=== PATIENT | male | born 1975 | race Caucasian/White ===

== ENCOUNTER 2017-09-04 17:41 | Emergency (ER) | payer BC ==
[~2017-09-04] VITALS: Ht 188 cm; Wt 92.4 kg
[2017-09-04 17:57] VITALS: TEMP 36.9; Ht 188 cm; Wt 92.4 kg
[2017-09-04] MEDS ORDERED: SODIUM CHLORIDE 0.9% 1000ML 1,000 ML IV STA (18:07)
[2017-09-04 18:44] LABS: BASO % 0.2 %; BASO ABS # 0.01 K/uL (0-0.2); EOS % 1.6 %; HEMATOCRIT 44.2 % (42-52); HEMOGLOBIN 16.4 g/dL (14.0-18.0); IG# 0.01 K/uL (0.00-0.02); LYMPH % 27.3 %; LYMPH ABS # 1.72 K/uL (1.2-3.4); MEAN CELL VOLUME 86.2 fL (80-100); MEAN CORPUSCULAR HGB CONC 37.1 g/dl (32-36); MEAN PLATELET VOLUME 10.3 fL (7.4-10.4); MONO % 7.9 %; NEUT % 62.8 %; NEUT ABS # 3.97 K/uL (1.4-6.5); PLATELET COUNT 186 K/uL (130-400); RED CELL DISTRIBUTION WIDTH CV 12.4 % (11.5-14.5); RED CELL DISTRIBUTION WIDTH SD 39.3 fL (36.4-46.3); WHITE BLOOD COUNT 6.31 K/uL (4.8-10.8)
[2017-09-04 19:00] LABS: ALBUMIN 4.3 gm/dl (3.4-5.0); ALT/SGPT 50 U/L (12-78); BLOOD UREA NITROGEN 14 mg/dl (7-18); CALCIUM 9.1 mg/dl (8.5-10.1); CARBON DIOXIDE 25 mmol/L (21-32); CREATININE 1.07 mg/dl (0.60-1.40); GLUCOSE 113 mg/dl (70-99); LIPASE 248 U/L (73-393); POTASSIUM 3.9 mmol/L (3.5-5.1); SODIUM 138 mmol/L (136-145)
[2017-09-04 19:05] LABS: ALKALINE PHOSPHATASE 65 U/L (45-117); AST/SGOT 19 U/L (15-37); TOTAL PROTEIN 7.6 gm/dl (6.4-8.2)
[2017-09-04 19:07] LABS: PTT PATIENT 26.1 SECONDS (21.0-31.0)
[2017-09-04] MEDS ORDERED: MULT-513 PO (19:34)
--- NOTE | 2017-09-04 19:46 | DIAGNOSTIC IMAGING REPORT ---
PA CHEST WITH ABDOMINAL SERIES CLINICAL HISTORY: Generalized abdominal pain. Loose stools. FINDINGS: A PA chest radiograph is obtained. No prior studies are available for comparison at the time of dictation. The cardiomediastinal silhouette is unremarkable. The lungs and pleural spaces are clear. No pneumothorax is seen. The bony thorax is grossly intact. Supine and erect abdominal radiographs are obtained. No prior studies are available for comparison at the time of dictation. There is a nonobstructed abdominal bowel gas pattern. Mild to moderate fecal retention is noted throughout the colon. No evidence of intraperitoneal free air is seen. There are no abnormal abdominal calcifications. Phlebolith are observed in the pelvis. The lumbosacral spine and bony pelvis appear intact. IMPRESSION: 1. No active disease in the chest. 2. Nonobstructed abdominal bowel gas pattern. Electronically signed by: Flip Ding M.D. 09/04/2017 7:45 PM Dictated Date/Time: 09/04/2017 7:44 PM
[2017-09-04] MEDS ORDERED: ALUMINUM/MAGNESIUM SUSP 30 ML UDC PO STA (19:57)
[2017-09-04] MEDS ORDERED: PANTOprazole SOD 40 MG TAB PO STA (19:57)
[2017-09-04] MEDS ORDERED: PANT1TAB3 PO (19:59)
--- NOTE | 2017-09-04 20:13 | EMERGENCY ROOM VISIT NOTE ---
History Report prepared by Maribellibyumiko: Ramiro Ann Under the Supervision of: Dr. Reji Marroquin D.O. First contact with patient: 17:52 Chief Complaint: ABDOMINAL PAIN Stated Complaint: INTENSE STOMACH PAIN IN THROAT INTO BACK History of Present Illness The patient is a 42 year old male who presents to the Emergency Room with complaints of intermittent generalized abdominal pain beginning a few weeks ago. He notices his pain a few hours after eating (nearly every time). His pain is worse in his LLQ. The patient describes his pain as a feeling of "burning". He feels that his pain is moving downwards. He also complains of pain across his back. The patient states that his stool has been "loose" recently. He denies fevers, nausea, or vomiting. He has never had a colonoscopy. He has a history of occasional GERD but does not take medications. Source of History: patient Onset: A few days ago Position: abdomen (generalized) Quality: burning Timing: intermittent Modifying Factors (Worsening): eating Associated Symptoms: + back pain, No fevers, No nausea, No vomiting Note: The patient also complains of "loose" stool. Review of Systems See HPI for pertinent positives & negatives. A total of 10 systems reviewed and were otherwise negative. Past Medical & Surgical Medical Problems: (1) No Known Active Medical Problems Family History No pertinent family history stated. Social History Marital Status: Occupation Status: employed Current/Historical Medications Scheduled Multivitamins/Minerals (Mvi With Minerals), 1 TAB PO DAILY Pantoprazole (Protonix), 40 MG PO DAILY Allergies Coded Allergies: Bacitracin (Verified Allergy, Severe, FACE SWELLING, 09/04/17) Neomycin (Verified Allergy, Severe, FACE SWELLING, 09/04/17) Polymyxin B (Verified Allergy, Severe, FACE SWELLING, 09/04/17) Cephalexin (Verified Allergy, Intermediate, ITCHY, 09/04/17) Latex1 -Allergic Contact Dermititis (Verified Allergy, Intermediate, DERMITITIS, 09/04/17) Physical Exam Vital Signs Date Time Temp Pulse Resp B/P (MAP) Pulse Ox O2 Delivery O2 Flow Rate FiO2 09/04/17 20:24 74 20 147/98 98 09/04/17 17:57 36.9 76 20 150/96 99 Room Air Physical Exam GENERAL: Patient is awake, alert, and in no acute distress. Patient is resting comfortably and showing no signs of anxiety EYES: The conjunctivae are clear. The pupils are round and reactive. EARS, NOSE, MOUTH AND THROAT: The nose is without any evidence of any deformity. Mucous membranes are moist tongue is midline NECK: The neck is nontender and supple. RESPIRATORY: Normal respiratory effort is noted there is no evidence of wheezing rhonchi or rales CARDIOVASCULAR: Regular rate and rhythm noted there no murmurs rubs or gallops normal S1 normal S2 GASTROINTESTINAL: The abdomen is soft with diffuse tenderness to palpation but no guarding or rigidity. BACK: No midline tenderness or or step-off noted range of motion in flexion extension as well as rotation no signs of muscle spasm noted MUSCULOSKELETAL/EXTREMITIES: There is no evidence of gross deformity full range of motion is noted in the hips and shoulders SKIN: There is no obvious evidence of any rash. There are no petechiae, pallor or cyanosis noted. NEUROLOGIC: Patient is awake alert and oriented x3. Medical Decision & Procedures ER Provider Diagnostic Interpretation: Radiology results as stated below per my review and radiologist interpretation: PA CHEST WITH ABDOMINAL SERIES FINDINGS: A PA chest radiograph is obtained. No prior studies are available for comparison at the time of dictation. The cardiomediastinal silhouette is unremarkable. The lungs and pleural spaces are clear. No pneumothorax is seen. The bony thorax is grossly intact. Supine and erect abdominal radiographs are obtained. No prior studies are available for comparison at the time of dictation. There is a nonobstructed abdominal bowel gas pattern. Mild to moderate fecal retention is noted throughout the colon. No evidence of intraperitoneal free air is seen. There are no abnormal abdominal calcifications. Phlebolith are observed in the pelvis. The lumbosacral spine and bony pelvis appear intact. IMPRESSION: 1. No active disease in the chest. 2. Nonobstructed abdominal bowel gas pattern. Electronically signed by: Flip Ding M.D. 09/04/2017 7:45 PM Laboratory Results 09/04/17 18:27 Red Blood Count 5.13, Mean Corpuscular Volume 86.2, Mean Corpuscular Hemoglobin 32.0, Mean Corpuscular Hemoglobin Concent 37.1, Mean Platelet Volume 10.3, Neutrophils (%) (Auto) 62.8, Lymphocytes (%) (Auto) 27.3, Monocytes (%) (Auto) 7.9, Eosinophils (%) (Auto) 1.6, Basophils (%) (Auto) 0.2, Neutrophils # (Auto) 3.97, Lymphocytes # (Auto) 1.72, Monocytes # (Auto) 0.50, Eosinophils # (Auto) 0.10, Basophils # (Auto) 0.01 09/04/17 18:27 Test 09/04/17 18:27 09/04/17 19:10 White Blood Count 6.31 K/uL (4.8-10.8) Red Blood Count 5.13 M/uL (4.7-6.1) Hemoglobin 16.4 g/dL (14.0-18.0) Hematocrit 44.2 % (42-52) Mean Corpuscular Volume 86.2 fL (80-100) Mean Corpuscular Hemoglobin 32.0 pg (25-34) Mean Corpuscular Hemoglobin Concent 37.1 g/dl (32-36) Platelet Count 186 K/uL (130-400) Mean Platelet Volume 10.3 fL (7.4-10.4) Neutrophils (%) (Auto) 62.8 % Lymphocytes (%) (Auto) 27.3 % Monocytes (%) (Auto) 7.9 % Eosinophils (%) (Auto) 1.6 % Basophils (%) (Auto) 0.2 % Neutrophils # (Auto) 3.97 K/uL (1.4-6.5) Lymphocytes # (Auto) 1.72 K/uL (1.2-3.4) Monocytes # (Auto) 0.50 K/uL (0.11-0.59) Eosinophils # (Auto) 0.10 K/uL (0-0.5) Basophils # (Auto) 0.01 K/uL (0-0.2) RDW Standard Deviation 39.3 fL (36.4-46.3) RDW Coefficient of Variation 12.4 % (11.5-14.5) Immature Granulocyte % (Auto) 0.2 % Immature Granulocyte # (Auto) 0.01 K/uL (0.00-0.02) Prothrombin Time 10.7 SECONDS (9.0-12.0) Prothromb Time International Ratio 1.0 (0.9-1.1) Activated Partial Thromboplast Time 26.1 SECONDS (21.0-31.0) Partial Thromboplastin Ratio 1.0 Anion Gap 12.0 mmol/L (3-11) Est Creatinine Clear Calc Drug Dose 105.7 ml/min Estimated GFR () 99.4 Estimated GFR (Non- 85.8 BUN/Creatinine Ratio 12.6 (10-20) Calcium Level 9.1 mg/dl (8.5-10.1) Total Bilirubin 0.6 mg/dl (0.2-1) Direct Bilirubin 0.1 mg/dl (0-0.2) Aspartate Amino Transf (AST/SGOT) 19 U/L (15-37) Alanine Aminotransferase (ALT/SGPT) 50 U/L (12-78) Alkaline Phosphatase 65 U/L (45-117) Troponin I < 0.015 ng/ml (0-0.045) Total Protein 7.6 gm/dl (6.4-8.2) Albumin 4.3 gm/dl (3.4-5.0) Lipase 248 U/L (73-393) Urine Color YELLOW Urine Appearance CLEAR (CLEAR) Urine pH 6.5 (4.5-7.5) Urine Specific [place] 1.017 (1.000-1.030) Urine Protein NEG (NEG) Urine Glucose (UA) NEG (NEG) Urine Ketones NEG (NEG) Urine Occult Blood NEG (NEG) Urine Nitrite NEG (NEG) Urine Bilirubin NEG (NEG) Urine Urobilinogen NEG (NEG) Urine Leukocyte Esterase NEG (NEG) Laboratory results per my review. Medications Administered Medications (Trade) Dose Ordered Sig/Estiven Route Start Time Stop Time Status Last Admin Dose Admin Pantoprazole Sodium (Protonix Tab) 40 mg NOW STAT PO 09/04/17 19:57 09/04/17 19:58 DC 09/04/17 20:05 40 MG Al Hydroxide/Mg Hydroxide (Maalox Susp) 30 ml NOW STAT PO 09/04/17 19:57 09/04/17 19:58 DC 09/04/17 20:05 30 ML ECG Indication: abdominal pain Rate (beats per minute): 79 Rhythm: normal sinus Findings: no acute ischemic change, no ectopy Comparison ECG Date: no prior available ED Course 1800: The patient was evaluated in room B11B. A complete history and physical examination were performed. 1806: Ordered NSS 1,000 ml @ 999 mls/hr IV. 2004: Upon reevaluation, the patient is resting comfortably. I discussed the results and treatment plan with him. He verbalized agreement of the treatment plan. The patient was discharged home. Medical Decision Differential diagnosis: Etiologies such as appendicitis, diverticulitis, PUD, biliary pathology, UTI, pancreatitis, obstruction, mesenteric ischemia, aortic pathology, infections, inflammatory bowel disease, renal colic, as well as others were entertained. Nursing notes reviewed. The patient is a 42-year-old male who presented to the emergency department for an evaluation of abdominal pain. The patient describes abdominal pain which was worsened with food. He noticed pain initially started high in his abdomen but then would work its way down. He started noticing that it would worsen with food but improve after having a bowel movement. The patient's history and physical exam was not consistent with an acute surgical abdomen. The patient not wish to have any pain medication or IV fluids. I discussed the patient's laboratory radiographic studies with him. He did not have an elevation in his white blood cell count. X-rays did not reveal any acute abnormality. I discussed the possibility of doing a CAT scan of his abdomen but this time he does not wish to have the CAT scan secondary to the radiation exposure and I also agree that this is probably not the best test for him at this time. He was encouraged to try bland diet as well as a proton pump inhibitor. I also encouraged him to follow-up with his primary care physician for further evaluation or return to the emergency department immediately if symptoms change worsen or the need arises. Medication Reconcilliation Current Medication List: was personally reviewed by me Blood Pressure Screening Patient's blood pressure: Elevated blood pressure Blood pressure disposition: Elevated BP felt to be situational Impression Primary Impression: Generalized abdominal pain Scribe Attestation The scribe's documentation has been prepared under my direction and personally reviewed by me in its entirety. I confirm that the note above accurately reflects all work, treatment, procedures, and medical decision making performed by me. Departure Information Dispostion Home / Self-Care Prescriptions Pantoprazole (PROTONIX) 40 Mg Tab 40 MG PO DAILY, #30 TAB Prov: Reji Marroquin, DO 09/04/17 Referrals Rubén Emanuel M.D. (PCP) Forms Call Back Authorization, HOME CARE DOCUMENTATION FORM, IMPORTANT VISIT INFORMATION Patient Instructions ED Abdominal Pain Unkn Cause Male, My [facility] Additional Instructions Call your family Dr. to schedule a follow-up appointment. Drink plenty clear liquids. I would recommend a bland diet for the next few days. Continue all medications as prescribed. Consider using Tylenol as directed for pain. Return to the emergency department immediately if symptoms change worsen or the need arises.
[2017-09-04 20:24] VITALS: BP 147/98; PULSE 74; O2SAT 98
== END 2017-09-04 20:25 | disposition home or self-care (01) ==
LOC: C.EDB 17:43
DX: R10.84 Generalized abdominal pain (principal); R19.7 Diarrhea, unspecified; M54.9 Dorsalgia, unspecified

== ENCOUNTER 2017-09-05 21:04 | Emergency (ER) | payer BC ==
[~2017-09-05] VITALS: Ht 188 cm; Wt 92.2 kg
[~2017-09-05 21:04] MED LIST: MULT-513 PO; PANT1TAB3 PO
[2017-09-05 21:08] VITALS: TEMP 36.4; Ht 188 cm; Wt 92.2 kg
[2017-09-05] MEDS ORDERED: DICYCLOMINE HCL 10 MG/ML 2 ML AMP IM ONE (21:45)
[2017-09-05 22:13] LABS: BASO % 0.3 %; BASO ABS # 0.02 K/uL (0-0.2); EOS % 1.4 %; HEMATOCRIT 46.6 % (42-52); HEMOGLOBIN 16.9 g/dL (14.0-18.0); IG# 0.01 K/uL (0.00-0.02); LYMPH % 30.8 %; LYMPH ABS # 2.27 K/uL (1.2-3.4); MEAN CELL VOLUME 85.5 fL (80-100); MEAN CORPUSCULAR HGB CONC 36.3 g/dl (32-36); MEAN PLATELET VOLUME 10.2 fL (7.4-10.4); MONO % 8.5 %; MONO ABS # 0.63 K/uL (0.11-0.59); NEUT % 58.9 %; NEUT ABS # 4.35 K/uL (1.4-6.5); PLATELET COUNT 190 K/uL (130-400); RED CELL DISTRIBUTION WIDTH CV 12.5 % (11.5-14.5); RED CELL DISTRIBUTION WIDTH SD 38.8 fL (36.4-46.3); WHITE BLOOD COUNT 7.38 K/uL (4.8-10.8)
[2017-09-05 22:29] LABS: ALBUMIN 4.4 gm/dl (3.4-5.0); ALT/SGPT 46 U/L (12-78); BLOOD UREA NITROGEN 13 mg/dl (7-18); CALCIUM 9.6 mg/dl (8.5-10.1); CARBON DIOXIDE 26 mmol/L (21-32); CREATININE 1.07 mg/dl (0.60-1.40); GLUCOSE 105 mg/dl (70-99); LIPASE 125 U/L (73-393); POTASSIUM 3.6 mmol/L (3.5-5.1); SODIUM 136 mmol/L (136-145)
[2017-09-05 22:50] LABS: ALKALINE PHOSPHATASE 68 U/L (45-117); AST/SGOT 20 U/L (15-37); TOTAL PROTEIN 7.7 gm/dl (6.4-8.2)
--- NOTE | 2017-09-05 23:09 | DIAGNOSTIC IMAGING REPORT ---
GALLBLADDER-ABD LIMITED HISTORY: 42 years-old Male flank, upper abd pain acute bilateral flank pain COMPARISON: Acute abdominal series radiographs 09/04/2017 TECHNIQUE: Multiple real-time sonographic images of the abdominal right upper quadrant were obtained assessing grayscale appearance and color flow FINDINGS: Pancreas is obscured by bowel gas. The liver appears unremarkable without intrahepatic biliary ductal dilation or focal mass measuring 14.9 cm in length. Gallbladder is within normal limits without wall thickening, shadowing cholelithiasis or pericholecystic fluid collections. Common bile duct is normal, 2 mm. Right kidney is unremarkable without hydronephrosis. Study is limited secondary to obscuring bowel gas. IMPRESSION: 1. Unremarkable sonographic appearance of the gallbladder without cholelithiasis or sonographic evidence of acute cholecystitis. 2. No biliary ductal dilation. The above report was generated using voice recognition software. It may contain grammatical, syntax or spelling errors. Electronically signed by: Gerson Arrieta M.D. 09/05/2017 11:07 PM Dictated Date/Time: 09/05/2017 11:05 PM
--- NOTE | 2017-09-05 23:11 | DIAGNOSTIC IMAGING REPORT ---
(RENAL)RETROPERITON COMP HISTORY: 42 years-old Male flank, upper abd pain acute bilateral flank and upper abdominal pain COMPARISON: Right upper quadrant ultrasound of same day TECHNIQUE: Multiple real-time sonographic images of the kidneys and urinary bladder were obtained assessing grayscale appearance and color flow FINDINGS: Right kidney measures 9.0 x 4.8 x 5.4 cm and is within normal limits without renal calculi, hydronephrosis or focal renal mass identified. Cortical medullary differentiation preserved. Left kidney measures 10.3 x 6.1 x 5.3 cm and is within normal limits without renal calculi, hydronephrosis or focal renal mass identified. Cortical medullary differentiation preserved. Urinary bladder is not well distended. Ureteral jets not identified. Overall study is limited secondary to obscuring bowel gas. IMPRESSION: 1. Unremarkable sonographic appearance of the kidneys without renal calculi or hydronephrosis. 2. Partially distended urinary bladder. The above report was generated using voice recognition software. It may contain grammatical, syntax or spelling errors. Electronically signed by: Gerson Arrieta M.D. 09/05/2017 11:09 PM Dictated Date/Time: 09/05/2017 11:08 PM
--- NOTE | 2017-09-05 23:46 | EMERGENCY ROOM VISIT NOTE ---
History First contact with patient: 21:25 Chief Complaint: ABDOMINAL PAIN Stated Complaint: SEVERE BACK AND STOMACH PAINS Nursing Triage Summary: Pt reports he was here for abdominal pain last night and was told to come back today if it worsened for CT scan. Denies N/V. Denies urinary symptoms. Pain radiates from back into left flank and abdomen. History of Present Illness The patient is a 42 year old male who presents to the Emergency Room with complaints of intermittent abdominal and back pain for the past day. Patient states the pain will come and go in severity. He is currently not having any pain. It will move throughout his abdomen and back. No prior abdominal surgeries. Patient was taking probiotics and occasional oregano and other supplements a few days ago and then stopped this. Patient states since then the symptoms have started. Patient states he follows a Paleo diet and tries to avoid dairy and gluten foods. Patient denies chest pain, dyspnea, fever, chills , vomiting, diarrhea, urinary symptoms, testicular pain. Review of Systems See HPI for pertinent positives & negatives. A total of 10 systems reviewed and were otherwise negative. Past Medical/Surgical History Medical Problems: (1) No Known Active Medical Problems Social History Smoking Status: Never Smoker Drug Use: none Marital Status: Housing Status: lives with family Occupation Status: employed Current/Historical Medications Scheduled Multivitamins/Minerals (Mvi With Minerals), 1 TAB PO DAILY Pantoprazole (Protonix), 40 MG PO DAILY Physical Exam Vital Signs Date Time Temp Pulse Resp B/P (MAP) Pulse Ox O2 Delivery O2 Flow Rate FiO2 09/05/17 23:16 83 09/05/17 22:59 88 16 140/96 98 Room Air 09/05/17 21:08 36.4 81 16 143/98 99 Room Air Physical Exam VITALS: Vitals are noted on the nurse's note and reviewed by myself. Vital signs stable. GENERAL: Pleasant male, in no acute distress, nondiaphoretic, well-developed well-nourished. SKIN: Capillary reflex less than 2 seconds. HEENT: Normocephalic. PERRLA. EOMI. Nares patent. Mucous membranes moist. Neck is supple without nuchal rigidity. HEART: Regular rate and rhythm without murmurs gallops or rubs. LUNGS: Clear to auscultation bilaterally without wheezes, rales or rhonchi. No retractions or accessory muscle use. ABDOMEN: Positive bowel sounds x 4. Normal tympanic percussion. Soft, nontender, without masses or organomegaly. Rosen sign negative. No guarding or rebound tenderness. No CVA tenderness MUSCULOSKELETAL: No gross musculoskeletal defects. No pedal edema. NEURO: Patient was alert and oriented to person place and time. Normal sensation to light and sharp touch. No focal neurological deficits. Medical Decision & Procedures Laboratory Results 09/05/17 22:01 Red Blood Count 5.45, Mean Corpuscular Volume 85.5, Mean Corpuscular Hemoglobin 31.0, Mean Corpuscular Hemoglobin Concent 36.3, Mean Platelet Volume 10.2, Neutrophils (%) (Auto) 58.9, Lymphocytes (%) (Auto) 30.8, Monocytes (%) (Auto) 8.5, Eosinophils (%) (Auto) 1.4, Basophils (%) (Auto) 0.3, Neutrophils # (Auto) 4.35, Lymphocytes # (Auto) 2.27, Monocytes # (Auto) 0.63, Eosinophils # (Auto) 0.10, Basophils # (Auto) 0.02 09/05/17 22:01 Test 09/05/17 22:01 White Blood Count 7.38 K/uL (4.8-10.8) Red Blood Count 5.45 M/uL (4.7-6.1) Hemoglobin 16.9 g/dL (14.0-18.0) Hematocrit 46.6 % (42-52) Mean Corpuscular Volume 85.5 fL (80-100) Mean Corpuscular Hemoglobin 31.0 pg (25-34) Mean Corpuscular Hemoglobin Concent 36.3 g/dl (32-36) Platelet Count 190 K/uL (130-400) Mean Platelet Volume 10.2 fL (7.4-10.4) Neutrophils (%) (Auto) 58.9 % Lymphocytes (%) (Auto) 30.8 % Monocytes (%) (Auto) 8.5 % Eosinophils (%) (Auto) 1.4 % Basophils (%) (Auto) 0.3 % Neutrophils # (Auto) 4.35 K/uL (1.4-6.5) Lymphocytes # (Auto) 2.27 K/uL (1.2-3.4) Monocytes # (Auto) 0.63 K/uL (0.11-0.59) Eosinophils # (Auto) 0.10 K/uL (0-0.5) Basophils # (Auto) 0.02 K/uL (0-0.2) RDW Standard Deviation 38.8 fL (36.4-46.3) RDW Coefficient of Variation 12.5 % (11.5-14.5) Immature Granulocyte % (Auto) 0.1 % Immature Granulocyte # (Auto) 0.01 K/uL (0.00-0.02) Erythrocyte Sedimentation Rate 2 mm/hr (0-14) Urine Color YELLOW Urine Appearance CLEAR (CLEAR) Urine pH 7.0 (4.5-7.5) Urine Specific [place] 1.016 (1.000-1.030) Urine Protein NEG (NEG) Urine Glucose (UA) NEG (NEG) Urine Ketones TRACE (NEG) Urine Occult Blood NEG (NEG) Urine Nitrite NEG (NEG) Urine Bilirubin NEG (NEG) Urine Urobilinogen NEG (NEG) Urine Leukocyte Esterase NEG (NEG) Anion Gap 8.0 mmol/L (3-11) Est Creatinine Clear Calc Drug Dose 105.7 ml/min Estimated GFR () 99.4 Estimated GFR (Non- 85.8 BUN/Creatinine Ratio 11.7 (10-20) Calcium Level 9.6 mg/dl (8.5-10.1) Magnesium Level 2.5 mg/dl (1.8-2.4) Total Bilirubin 1.0 mg/dl (0.2-1) Direct Bilirubin 0.2 mg/dl (0-0.2) Aspartate Amino Transf (AST/SGOT) 20 U/L (15-37) Alanine Aminotransferase (ALT/SGPT) 46 U/L (12-78) Alkaline Phosphatase 68 U/L (45-117) C-Reactive Protein < 0.29 mg/dl (0-0.29) Total Protein 7.7 gm/dl (6.4-8.2) Albumin 4.4 gm/dl (3.4-5.0) Lipase 125 U/L (73-393) Thyroid Stimulating Hormone (TSH) 1.710 uIu/ml (0.300-4.500) ED Course Prior records/ancillary studies reviewed. Triage Nursing notes reviewed. Additional history obtained from family. The patient's history was concerning for abdominal pain. Differential diagnosis: Etiologies such as appendicitis, irritable bowel, diverticulitis, PUD, biliary pathology, UTI, pancreatitis, obstruction, mesenteric ischemia, aortic pathology , infections, inflammatory bowel disease, renal colic, as well as others were entertained. Physical examination findings: As above. ER treatment provided: Bentyl On reassessment the patient felt better. Diagnostics interpreted by me: The labs revealed no worrisome leukocytosis or electrolyte abnormality. Imaging studies: GALLBLADDER-ABD LIMITED HISTORY: 42 years-old Male flank, upper abd pain acute bilateral flank pain COMPARISON: Acute abdominal series radiographs 09/04/2017 TECHNIQUE: Multiple real-time sonographic images of the abdominal right upper quadrant were obtained assessing grayscale appearance and color flow FINDINGS: Pancreas is obscured by bowel gas. The liver appears unremarkable without intrahepatic biliary ductal dilation or focal mass measuring 14.9 cm in length. Gallbladder is within normal limits without wall thickening, shadowing cholelithiasis or pericholecystic fluid collections. Common bile duct is normal, 2 mm. Right kidney is unremarkable without hydronephrosis. Study is limited secondary to obscuring bowel gas. IMPRESSION: 1. Unremarkable sonographic appearance of the gallbladder without cholelithiasis or sonographic evidence of acute cholecystitis. 2. No biliary ductal dilation. The above report was generated using voice recognition software. It may contain grammatical, syntax or spelling errors. Electronically signed by: Gerson Arrieta M.D. (RENAL)RETROPERITON COMP HISTORY: 42 years-old Male flank, upper abd pain acute bilateral flank and upper abdominal pain COMPARISON: Right upper quadrant ultrasound of same day TECHNIQUE: Multiple real-time sonographic images of the kidneys and urinary bladder were obtained assessing grayscale appearance and color flow FINDINGS: Right kidney measures 9.0 x 4.8 x 5.4 cm and is within normal limits without renal calculi, hydronephrosis or focal renal mass identified. Cortical medullary differentiation preserved. Left kidney measures 10.3 x 6.1 x 5.3 cm and is within normal limits without renal calculi, hydronephrosis or focal renal mass identified. Cortical medullary differentiation preserved. Urinary bladder is not well distended. Ureteral jets not identified. Overall study is limited secondary to obscuring bowel gas. IMPRESSION: 1. Unremarkable sonographic appearance of the kidneys without renal calculi or hydronephrosis. 2. Partially distended urinary bladder. The above report was generated using voice recognition software. It may contain grammatical, syntax or spelling errors. Electronically signed by: Gerson Arrieta M.D. Exam and history seem consistent with abdominal cramping and back discomfort that could be related to irritable bowel. Patient did not have acute abdomen on exam. His symptoms come and go. He has been taking different supplements and then stopped them all of a sudden. Patient had unremarkable workup as above. He had no abdominal pain throughout his stay in the ER. He was advised to do a bland diet. He is advised to eat small meals and try Bentyl for his symptoms. He is advised to follow-up family care in a few days or here in the ER sooner for abdominal pain, fevers, vomiting, worsening signs or symptoms or as needed. By the evaluation outlined above emergent etiologies such as appendicitis, diverticulitis, PUD, biliary pathology, UTI, pancreatitis, obstruction, mesenteric ischemia, aortic pathology, infections, inflammatory bowel disease, renal colic, as well as others were deemed relatively unlikely. The pt informed about the findings as listed above. All questions were answered and pleased with the treatment. Return instructions were outlined and the patient was discharged in stable condition. Outpatient prescription management: bentyl Referral: The patient was referred back to their primary care physician for follow-up in 2 to 3 days for a recheck of the current condition. case reviewed with my Attending Medical Decision As above Medication Reconcilliation Current Medication List: was personally reviewed by me Blood Pressure Screening Patient's blood pressure: Elevated blood pressure Blood pressure disposition: Elevated BP felt to be situational Impression Primary Impression: Generalized abdominal discomfort Departure Information Dispostion Home / Self-Care Condition GOOD Referrals Rubén Emanuel M.D. (PCP) Patient Instructions [facility] Additional Instructions Bentyl 20 m tablet every 6-8 hours as needed for abdominal cramping. Recheck your glucose with the family doctor for possible pre-diabetes. Avoid acidic foods. Rest and drink plenty of fluids as tolerated. Continue current medications. Avoid strenuous activities and anything that worsens your pain. Resume normal activities once your symptoms resolve. Return to the ER immediately for worsening or persistent chest pain, abdominal pain, black or blood in your stools, vomiting, fevers, chest pains, difficulty breathing, worsening of your condition, or as needed. Follow up with your primary physician in 2-3 days for a recheck of your current condition.
[2017-09-06 00:01] VITALS: BP 129/85
[2017-09-06 00:04] VITALS: PULSE 79; O2SAT 98
[2017-09-06] MEDS ORDERED: DICY10CA55 PO (00:05)
== END 2017-09-06 00:13 | disposition home or self-care (01) ==
LOC: C.EDB 21:05
DX: R10.84 Generalized abdominal pain (principal); M54.9 Dorsalgia, unspecified; Z79.899 Other long term (current) drug therapy

== ENCOUNTER → 2017-09-14 | Outpatient (CLI) | payer BC ==
[~2017-09-14] MED LIST changes: +DICY10CA55 PO
== END | disposition home or self-care (01) ==
LOC: C.LAB 09:48
PROVIDERS: ATTEND Nutritionist
DX: R53.81 Other malaise (principal)